=== PATIENT | female | born 2005 | race Asian ===

== ENCOUNTER 2024-01-24 10:23 | Inpatient (IN) | payer BC, OTHER ==
[~2024-01-24] VITALS: Ht 165.1 cm; Wt 70.0 kg
[2024-01-24 10:25] VITALS: O2SAT 100
[2024-01-24 10:58] LABS: BASOPHILS % 0.3 % (0.0-2.0); EOSINOPHILS % 0.1 % (0.0-5.0); HEMATOCRIT. 41.1 % (36.0-48.0); HEMOGLOBIN. 13.5 g/dL (12.0-16.0); LYMPHOCYTES % 14.2 % (20.0-50.0); MEAN CORPUSCULAR HEMOGLOBIN 30.9 pg (28.0-32.0); MEAN CORPUSCULAR HGB CONC 32.8 g/dL (31.0-37.0); MEAN CORPUSCULAR VOLUME 94.1 fL (81.0-99.0); MEAN PLATELET VOLUME 7.3 fl (7.4-10.4); NEUTROPHILS % 79.4 % (40.0-76.0); PLATELET 298 x1000/uL (130-400); RED BLOOD CELL COUNT 4.37 mill/uL (4.2-5.4); RED CELL DISTRIBUTION WIDTH 13.3 % (11.6-14.6); WHITE BLOOD COUNT 9.5 x1000/uL (4.5-11.0)
[2024-01-24 11:08] LABS: CHLORIDE 105 mEq/L (98-107); POTASSIUM 3.9 mEq/L (3.5-5.1); SODIUM 139 mEq/L (136-145)
[2024-01-24 11:09] LABS: CARBON DIOXIDE 25 mEq/L (21-32)
[2024-01-24 11:10] LABS: CALCIUM 9.7 mg/dL (8.7-10.4)
[2024-01-24 11:14] LABS: CREATININE 0.7 mg/dL (0.6-1.0); GLUCOSE 110 mg/dL (70-105)
[2024-01-24 11:15] LABS: UREA NITROGEN BLOOD 9 mg/dL (9-23)
[2024-01-24 11:16] LABS: ACETAMINOPHEN < 2 ug/mL (10-30)
[2024-01-24 11:48] LABS: HCG SCREEN NEGATIVE
[2024-01-24 12:12] LABS: ETHANOL BLOOD < 10 mg/dL (<10); TROPONIN I HIGH SENSITIVITY < 4 ng/L (3.0-34)
[2024-01-24] MEDS: SODIUM CHLORIDE 0.9% 1,000 ML IV ONE (13:47)
[2024-01-24] MEDS ORDERED: ONDANSETRON HCL 4MG/2ML INJ IV PRN (15:45)
[2024-01-24] MEDS ORDERED: ACETAMINOPHEN 325MG TABLET PO PRN (15:45)
[2024-01-24 22:45] VITALS: BP 133/85; PULSE 103; RESP 18; TEMP 37.05852; O2SAT 98
[2024-01-25 00:01] VITALS: BP 134/76; PULSE 99; RESP 16; TEMP 37.61412; O2SAT 100
[2024-01-25 04:45] VITALS: BP 134/76; PULSE 99; RESP 16; TEMP 37.6412
[2024-01-25 05:23] VITALS: BP 125/79; PULSE 87; RESP 16; TEMP 36.78072; O2SAT 99
[2024-01-25 08:00] VITALS: BP 118/70; PULSE 76; RESP 17; TEMP 36.28068; O2SAT 99
[2024-01-25] MEDS ORDERED: DOCUSATE SODIUM 100MG CAPSULE PO PRN (10:45)
[2024-01-25] MEDS ORDERED: IPRATROPIUM/ALBUTEROL 0.5-3(2.5)MG/3ML NEB HHN PRN (10:45)
[2024-01-25] MEDS ORDERED: CLONIDINE 0.1MG TABLET PO PRN (10:45)
[2024-01-25 12:00] VITALS: BP 109/60; PULSE 81; RESP 16; TEMP 36.55848; O2SAT 97
[2024-01-25 16:00] VITALS: BP 106/53; PULSE 100; RESP 18; TEMP 35.8362; TEMP 35.83620; O2SAT 98
[2024-01-26] MEDS ORDERED: HYDROXYZINE 10MG TABLET PO PRN (11:00)
[2024-01-26] MEDS ORDERED: FLUOXETINE HCL 10 MG CAPSULE PO SCH (12:00)
== END 2024-01-26 18:20 | disposition left against medical advice (07) | DRG 312 ==
LOC: ER 10:43 → EDBEDREQ 13:20 → 5WST 14:24 → 3WST 01-25 14:36 → 5WST 01-25 15:18
PROVIDERS: ADMIT Internal Medicine; ATTEND Internal Medicine
DX: R55 Syncope and collapse (principal); F32.9 Major depressive disorder, single episode, unspecified; Z53.29 Procedure and treatment not carried out because of patient's decision for other reasons
CPT/HCPCS: 36415; 71045; 80048; 80307; 80320; 80329; 84484; 84703; 85025; 93005; 99285; J7030; G0480